=== PATIENT | female | born 1965 | race Caucasian/White ===

== ENCOUNTER 2017-11-08 08:57 | Emergency (ER) | payer BC ==
[2017-11-08] MEDS: KETOROLAC 30 MG INJ IM (09:55)
== END 2017-11-08 11:55 | disposition home or self-care (01) ==
LOC: FTE 08:57
DX: M79.604 Pain in right leg (principal); M79.605 Pain in left leg; I83.813 Varicose veins of bilateral lower extremities with pain
CPT/HCPCS: 93970; 96372; 99285-25